=== PATIENT | female | born 1945 | race Caucasian/White ===

== ENCOUNTER → 2016-09-29 | Outpatient (CLI) | payer MEDICARE | LOC: US 09-24 11:00 | DX: R80.9 Proteinuria, unspecified (principal) ==

== ENCOUNTER 2020-06-20 15:37 | Observation (INO) | payer MEDICARE ==
[~2020-06-20] VITALS: Ht 152.4 cm; Wt 55.8 kg
[~2020-06-20 15:37] MED LIST: COREG25 MG PO; ECOTRIN81 MG PO; GLIPIZIDE ER5 MG PO; GLUCOPHAGE500 MG PO; HYDRALAZINE HCL25 MG PO; LEVAQUIN500 MG PO; LIPITOR TAB 2020 MG PO; MULTI-VITAMIN1 EACH PO; PREVACID30 MG PO; PROAIR HFA8.5 GM INH; SPIRIVA18 MCG INH; SYMBICORT 80-41 INHA INH; SYNTHROID75 MCG PO; VASOTEC20 MG PO; VITAMIN D3125 MCG PO; ZYRTEC10 M2 PO; tylenol #3 PO
[2020-06-20 17:44] LABS: HEMOGLOBIN 12.4 gm/dl (12.3-15.3); RED BLOOD COUNT 4.19 M/UL (4.00-5.10); WHITE BLOOD COUNT 21.3 K/UL (4.5-11.0)
[2020-06-20 18:05] LABS: BUN/CREATININE RATIO 22 (0-10)
[2020-06-21 04:34] LABS: HEMOGLOBIN 11.1 gm/dl (12.3-15.3); RED BLOOD COUNT 3.78 M/UL (4.00-5.10)
[2020-06-21 04:39] LABS: WHITE BLOOD COUNT 11.7 K/UL (4.5-11.0)
[2020-06-21 04:51] LABS: BUN/CREATININE RATIO 20 (0-10)
[2020-06-21] MEDS ORDERED: ARICEPT10 MG PO (10:32)
[2020-06-21] MEDS ORDERED: HYDRALAZINE HCL50 MG PO (10:34)
[2020-06-21] MEDS ORDERED: MEMANTINE HCL E28 MG PO (10:35)
[2020-06-21] MEDS ORDERED: SYMBICORT 160-1 INHA INH (10:36)
[2020-06-22 05:13] LABS: HEMOGLOBIN 10.1 gm/dl (12.3-15.3); RED BLOOD COUNT 3.45 M/UL (4.00-5.10); WHITE BLOOD COUNT 14.1 K/UL (4.5-11.0)
[2020-06-22] MEDS ORDERED: CEFUROXIME500 MG PO (10:10)
[2020-06-22] MEDS ORDERED: K-DUR TAB 20 M20 MEQ PO (10:10)
[2020-06-22] MEDS ORDERED: LASIX40 MG PO (10:10)
[2020-06-22] MEDS ORDERED: AZITHROMYCIN500 MG PO (10:10)
== END 2020-06-22 13:24 | disposition home or self-care (01) ==
LOC: ER1 15:37 → CDU 22:51 → MED SURG 4 06-21 08:17
PROVIDERS: Physician Assistant Medical; Student in an Organized Health Care Education/Training Program; ADMIT Internal Medicine
DX: J96.01 Acute respiratory failure with hypoxia (principal); J18.9 Pneumonia, unspecified organism; I50.23 Acute on chronic systolic (congestive) heart failure; D72.829 Elevated white blood cell count, unspecified; I25.5 Ischemic cardiomyopathy; E11.51 Type 2 diabetes mellitus with diabetic peripheral angiopathy without gangrene; J44.9 Chronic obstructive pulmonary disease, unspecified; E89.0 Postprocedural hypothyroidism; F03.90 Unspecified dementia, unspecified severity, without behavioral disturbance, psychotic disturbance, mood disturbance, and anxiety; I25.10 Atherosclerotic heart disease of native coronary artery without angina pectoris; E78.5 Hyperlipidemia, unspecified; Z20.822 Contact with and (suspected) exposure to COVID-19; Z99.81 Dependence on supplemental oxygen; Z95.1 Presence of aortocoronary bypass graft; Z87.891 Personal history of nicotine dependence; Z79.82 Long term (current) use of aspirin; Z79.84 Long term (current) use of oral hypoglycemic drugs; Z79.899 Other long term (current) drug therapy
CPT/HCPCS: ECHO; 0240U; 36415; 71046; 80048; 80053; 81001; 82550; 82553; 82962; 83605; 83735; 83874; 83880; 84100; 84484; 85025; 85027; 85379; 87040; 93005; 93306; 94640; 94664; 94760; 96365; 96366; 96367; 96372; 96374; 96375; 96376; 99285; G0378; J0456; J0696; J1650; J1940; J3370; J7030; Q9967

== ENCOUNTER → 2020-10-16 | Outpatient (CLI) | payer MEDICARE ==
[~2020-10-16] MED LIST changes: +ARICEPT10 MG PO; +AZITHROMYCIN500 MG PO; +CEFUROXIME500 MG PO; +HYDRALAZINE HCL50 MG PO; +K-DUR TAB 20 M20 MEQ PO; +LASIX40 MG PO; +MEMANTINE HCL E28 MG PO; +SYMBICORT 160-1 INHA INH
== END ==
LOC: EXRD 10:53
DX: E04.2 Nontoxic multinodular goiter (principal)
CPT/HCPCS: 76536

== ENCOUNTER 2021-07-02 15:01 | Emergency (ER) | payer MEDICARE ==
[~2021-07-02 15:01] MED LIST changes: -DECADRON6 MG PO
[2021-07-02] MEDS ORDERED: DECADRON6 MG PO (15:58)
[2021-07-02] MEDS ORDERED: PROAIR HFA8.5 GM INH (15:58)
== END 2021-07-02 16:27 | disposition home or self-care (01) ==
LOC: ER1 15:01
DX: U07.1 COVID-19 (principal); J44.9 Chronic obstructive pulmonary disease, unspecified; E11.9 Type 2 diabetes mellitus without complications; I10 Essential (primary) hypertension; Z95.0 Presence of cardiac pacemaker
CPT/HCPCS: 71045; 99284

== ENCOUNTER → 2021-07-02 | Outpatient (CLI) | payer MEDICARE ==
[~2021-07-02] VITALS: Ht 160 cm; Wt 59.0 kg
[~2021-07-02] MED LIST changes: +DECADRON6 MG PO
== END ==
LOC: EROP 13:26
DX: U07.1 COVID-19 (principal); I12.9 Hypertensive chronic kidney disease with stage 1 through stage 4 chronic kidney disease, or unspecified chronic kidney disease; E11.22 Type 2 diabetes mellitus with diabetic chronic kidney disease; N18.9 Chronic kidney disease, unspecified; E11.51 Type 2 diabetes mellitus with diabetic peripheral angiopathy without gangrene; F03.90 Unspecified dementia, unspecified severity, without behavioral disturbance, psychotic disturbance, mood disturbance, and anxiety; Z23 Encounter for immunization
CPT/HCPCS: M0247; Q0247

== ENCOUNTER → 2021-07-18 | Outpatient (CLI) | payer MEDICARE ==
[~2021-07-18] MED LIST changes: +DECADRON6 MG PO
== END ==
LOC: EXRD 13:28
DX: E04.2 Nontoxic multinodular goiter (principal)
CPT/HCPCS: 76536

== ENCOUNTER → 2021-07-30 | Outpatient (CLI) | payer MEDICARE | LOC: KOH-I 13:18 | DX: Z87.891 Personal history of nicotine dependence (principal); R91.1 Solitary pulmonary nodule | CPT/HCPCS: 71271 ==

== ENCOUNTER → 2021-12-09 | Outpatient (CLI) | payer MEDICARE | LOC: EXRD 14:42 | DX: R09.89 Other specified symptoms and signs involving the circulatory and respiratory systems (principal); I65.23 Occlusion and stenosis of bilateral carotid arteries | CPT/HCPCS: 93880 ==

== ENCOUNTER → 2022-02-03 | Outpatient (CLI) | payer MEDICARE | LOC: KOH-I 08:30 | DX: R91.1 Solitary pulmonary nodule (principal) | CPT/HCPCS: 71250 ==